=== PATIENT | male | born 1975 | race Caucasian/White ===

== ENCOUNTER 2016-06-17 15:28 | Outpatient (CLI) | payer BC ==
[2016-06-17 15:38] LABS: BASOPHILS % 0.3 (0.0-1.5); EOSINOPHILS % 3.2 % (0.0-6.8); LYMPHOCYTES # 2.1 # k/uL (0.6-4.0); MEAN CORPUSCULAR HEMOGLOBIN 32.2 pg (28.0-34.0); MONOCYTES # 0.4 # k/uL (0.0-0.9); MONOCYTES % 4.3 % (0.0-11.0); NEUTROPHILS # 5.4 # k/uL (1.4-7.7)
[2016-06-17 16:18] LABS: eGFR (African) > 60; eGFR (Non-African) > 60
== END 2016-06-17 15:30 ==
LOC: LAB 15:28
PROVIDERS: ATTEND Family Medicine
DX: G40.409 Other generalized epilepsy and epileptic syndromes, not intractable, without status epilepticus (principal)
CPT/HCPCS: 36415; 80053; 80156; 85025

== ENCOUNTER 2016-06-20 13:08 | Outpatient (CLI) | payer BC ==
--- NOTE | 2016-06-20 16:51 | Diagnostic Imaging Report ---
[facility] [id number] [facility].[address] [address] Report Submission Date: Jun 20, 2016 4:22:20 PM [employer] Patient Study Name: JAMEEL MESA Date: Jun 20, 2016 1:41:09 PM [employer] Modality Type: MR Gender: M Description: MRI BRAIN W/O CONTRAST : 77 Institution: [facility] Physician: GUERITA LAYNE MRI brain without contrast. History: History of many compressions and prior seizure. Technique: Multiplanar multi sequential of the brain were obtained without the use of intravenous contrast according to standard protocol. Findings: The brain parenchyma signal intensity is normal. There is no diffusion restriction to suggest acute or subacute infarct. The ventricles are normal in configuration and size. The 3rd and 4th ventricles are midline. There is no mass producing lesion identified. The flow-voids than large vessels the skull base are normal. Mucosal thickening in the maxillary sinus is an frontal sinus is clear. Impression: 1. No acute intracranial abnormality. 2. Mild sinus disease. Electronically signed on Jun 20, 2016 4:22:20 PM [employer] by: Kin Pandey [facility]
== END 2016-06-20 13:09 ==
LOC: RAD 13:08
PROVIDERS: ATTEND Family Medicine
DX: R56.9 Unspecified convulsions (principal)
CPT/HCPCS: 70551

== ENCOUNTER 2016-12-27 16:52 | Outpatient (CLI) | payer BC ==
[2016-12-27 17:11] LABS: BASOPHILS % 0.5 (0.0-1.5); EOSINOPHILS % 2.9 % (0.0-6.8); MEAN CORPUSCULAR HEMOGLOBIN 32.5 pg (28.0-34.0); MEAN CORPUSCULAR VOLUME 95.2 fl (80.0-100.0); NEUTROPHILS # 5.7 # k/uL (1.4-7.7)
[2016-12-27 17:41] LABS: eGFR (African) > 60; eGFR (Non-African) > 60
== END 2016-12-27 16:53 ==
LOC: LAB 16:52
PROVIDERS: ATTEND Family Medicine
DX: G40.909 Epilepsy, unspecified, not intractable, without status epilepticus (principal)
CPT/HCPCS: 36415; 80053; 80156; 85025

== ENCOUNTER 2018-03-23 11:09 | Outpatient (CLI) | payer BC, OTHER ==
[2018-03-23 12:07] LABS: MEAN CORPUSCULAR HEMOGLOBIN 32.6 pg (28.0-34.0)
[2018-03-23 12:08] LABS: BASOPHILS % 0.3 (0.0-1.5); EOSINOPHILS % 2.8 % (0.0-6.8); MONOCYTES % 5.4 % (0.0-11.0); NEUTROPHILS # 4.6 # k/uL (1.4-7.7)
[2018-03-23 12:41] LABS: eGFR (Non-African) > 60
== END 2018-03-23 15:27 ==
LOC: LAB 11:09
PROVIDERS: ATTEND Family Medicine
DX: G40.909 Epilepsy, unspecified, not intractable, without status epilepticus (principal)
CPT/HCPCS: 36415; 80053; 80156; 85025

== ENCOUNTER 2019-04-23 06:19 | Outpatient (CLI) | payer OTHER ==
[2019-04-23 07:45] LABS: BASOPHILS % 0.2 % (0.0-1.5); NEUTROPHILS # 3.2 # k/uL (1.4-7.7)
[2019-04-23 08:15] LABS: eGFR (Non-African) > 60
== END 2019-04-23 06:24 ==
LOC: LAB 06:19
PROVIDERS: ATTEND Family Medicine
DX: G40.909 Epilepsy, unspecified, not intractable, without status epilepticus (principal)
CPT/HCPCS: 36415; 80053; 80156; 85025